=== PATIENT | female | born 1955 | race Hispanic/Latino ===

== ENCOUNTER → 2021-08-12 | Outpatient (CLI) | payer BC | LOC: CT 13:02 | PROVIDERS: ATTEND Internal Medicine Critical Care Medicine | DX: U07.1 COVID-19 (principal); J18.9 Pneumonia, unspecified organism; J96.01 Acute respiratory failure with hypoxia; J84.10 Pulmonary fibrosis, unspecified; J98.11 Atelectasis | CPT/HCPCS: 71250 ==